=== PATIENT | male | born 1940 | race Caucasian/White ===

== ENCOUNTER → 2019-12-11 | Outpatient (CLI) | payer MEDICARE ==
--- NOTE | 2019-12-17 11:18 | MR ---
EXAMINATION TYPE: MR abdomen wo/w con DATE OF EXAM: 12/11/2019 COMPARISON: Outside CT abdomen and pelvis August 09, 2019 HISTORY: Pancreatic cancer CONTRAST: Standard multiplanar, multisequence MRI departmental protocol utilizing 7.5 mL intravenous Gadavist g adolinium contrast. Imaging is performed of the abdomen focusing on the pancreas. FINDINGS: MRI imaging suboptimal as patient unable to hold breath. Pancreas: On current study there is interval change as pancreas is smaller in size with ductal dilata tion is seen in the proximal to mid body and abrupt occlusion in the pancreatic head. There is persis tent mildly dilated gallbladder with distended margins having dependent small gallstones with mild to moderate abnormal gallbladder wall thickening greatest anterior inferior aspect. There is worsening extrahepatic and left-sided intrahepatic biliary dilatation. There is eccentric prominence measuring up to 2.7 cm of the common bile duct coronal image 16 with abrupt tapering seen best coronal image 17 . There are new thin-walled cysts central posterior to the pancreatic head axial image 17 series 901. There is still poor visualization of distinct mass at level of pancreatic head but heterogeneous are a of masslike enhancement measuring roughly 2.3 x 1.2 cm transversely postcontrast axial image 150 by roughly 2.5 cm craniocaudal dimension coronal postcontrast image 36. There is no distinct fat plane from the adjacent second portion of duodenal sweep. No vascular encasement is present. No definitive new greater than 1 cm adenopathy. Some prominent but subcentimeter and borderline enlarged lymph node s redemonstrated. For reference 16 x 9.5 mm anterior peripancreatic lymph node postcontrast axial baltazar ge 281 noted. Other: Lung bases remain clear. Small size hiatal hernia are redemonstrated. In the posterior segment right hepatic lobe there is 2.2 x 2.0 cm mass of T1 hypointensity and T2 hyp erintensity, dynamic postcontrast images show peripheral nodular enhancement with progressive centrip etal filling both reflect small hemangioma. 2 smaller lesions also identified, both anteriorly, one l eft hepatic lobe image 29 series 901 measures 1.1 cm. Second seen better on postcontrast images anter ior segment right hepatic lobe subcentimeter in size. Both show progressive peripheral rim type enhan cement favoring smaller hemangiomas. There is a fourth lesion posterior right hepatic dome 1.3 cm in size with progressive nodular enhancement. All lesions favor benign hemangiomas. In retrospect they w ere present on outside CT. There is a patent nondilated main portal vein. There are patent hepatic ve ins draining into IVC. Some heterogeneity and initial images corresponds to transient vascular phenom enon. There is some persistent enhancement along the draining central intrahepatic biliary duct nonsp ecific favoring inflammatory change. There are simple appearing thin-walled cysts of varying size and shape scattered throughout both kidn eys including largest lesion lower pole level left kidney extending laterally and inferiorly. No hydr onephrosis present in either kidney. Enhancing lesion superior L3 endplate corresponds to sclerotic focus on CT, nonspecific finding. Diffuse signal dropout in bilateral thickened adrenal glands consistent with benign lipid rich hyperp lasia. Atherosclerotic change of the aorta with focal linear signal or chronic dissection on postcontrast im age 167 for reference corresponding to CT axial image 56. No bowel obstruction. No abdominal ascites. IMPRESSION: Still poor visualization of pancreatic mass or neoplasm but new pancreatic ductal dilatat ion is present suggesting interval progression. Estimates of size of lesion given above. Worsening mo derate to severe biliary dilatation. Reactive cholecystitis is present. New adjacent thin-walled cyst ic change present. Persistent suspicious peripancreatic lymph nodes. Note is made of solid masses sca ttered throughout the liver but they favor benign hemangiomas on MRI dynamic workup. Nonspecific lesi on superior L3 endplate noted, osseous metastatic disease not excluded. MRCP imaging not performed.
== END | disposition home or self-care (01) ==
LOC: RADMRIMAIN 14:23
PROVIDERS: ATTEND Internal Medicine Hematology & Oncology
DX: D18.03 Hemangioma of intra-abdominal structures (principal); K81.9 Cholecystitis, unspecified; C25.0 Malignant neoplasm of head of pancreas
CPT/HCPCS: 74183; A9585

== ENCOUNTER 2020-01-22 14:57 | Emergency (ER) | payer MEDICARE ==
[2020-01-22] MEDS ORDERED: SODIUM CHLORIDE 0.9% 1,000 ML IV STA (15:24)
--- NOTE | 2020-01-22 15:36 | ED ---
General Adult HPI - General Chief complaint: Fall Stated complaint: Fall/weakness Time Seen by Provider: 01/22/20 15:09 Source: patient, RN notes reviewed, old records reviewed Mode of arrival: EMS Limitations: no limitations - History of Present Illness Initial comments: 79 yo male presenting for evaluation of increased weakness and multiple falls. Patient has pancreatic cancer diagnosed in July of this year. He is on chemotherapy and received chemotherapy most recently approximately 2 weeks ago. He had an episode of vomiting after his chemotherapy but over the past 5 days his had very small amount of intake including both fluids in very little food. Poor appetite. No fever. No vomiting. He had fallen twice in the past 2 days with superficial injury to the right forearm. No significant pain complaints. No loss of consciousness. No anticoagulation. - Related Data Home Medications Medication Instructions Recorded Confirmed Ondansetron HCl [Zofran] 4 mg PO Q4H PRN 01/22/20 01/22/20 QUEtiapine [SEROquel] 12.5 mg PO HS PRN 01/22/20 01/22/20 Simvastatin 40 mg PO HS 01/22/20 01/22/20 dronabinoL [Dronabinol] 5 mg PO BID 01/22/20 01/22/20 traMADol HCL [Ultram] 50 mg PO DAILY PRN 01/22/20 01/22/20 Allergies Allergy/AdvReac Type Severity Reaction Status Date / Time No Known Allergies Allergy Verified 01/22/20 16:37 Review of Systems ROS Statement: Those systems with pertinent positive or pertinent negative responses have been documented in the HPI. ROS Other: All systems not noted in ROS Statement are negative. Past Medical History Past Medical History: Cancer Additional Past Medical History / Comment(s): pancreatic cancer diagnosed 11/09 History of Any Multi-Drug Resistant Organisms: None Reported Past Surgical History: No Surgical Hx Reported Past Psychological History: No Psychological Hx Reported Smoking Status: Current every day smoker Past Alcohol Use History: None Reported Past Drug Use History: None Reported General Exam Limitations: no limitations General appearance: alert, in no apparent distress Head exam: Present: atraumatic, normocephalic Eye exam: Present: normal appearance, PERRL ENT exam: Present: mucous membranes dry Neck exam: Present: normal inspection. Absent: tenderness, meningismus Respiratory exam: Present: normal lung sounds bilaterally. Absent: respiratory distress, wheezes Cardiovascular Exam: Present: regular rate, tachycardia GI/Abdominal exam: Present: soft. Absent: distended, tenderness, guarding, rebound Extremities exam: Present: other (Superficial abrasion and skin tear to the right forearm) Neurological exam: Present: alert, oriented X3, CN II-XII intact. Absent: motor sensory deficit Psychiatric exam: Present: normal affect, normal mood Skin exam: Present: warm, dry Course Vital Signs 01/22/20 01/22/20 15:06 17:16 Temperature 97.9 F Pulse Rate 104 H 95 Respiratory 16 16 Rate Blood Pressure 139/80 120/65 O2 Sat by Pulse 98 96 Oximetry - Reevaluation(s) Reevaluation #1: 01/22/20 15:35 Patient states tetanus is up-to-date. EKG Findings - EKG Comments: EKG Findings:: EKG: Normal sinus rhythm, left anterior fascicular block, no ST segment elevation, rate of 97, ND interval 138, QRS duration 120, QTC 5:15 Medical Decision Making - Medical Decision Making 79-year-old male presented with poor appetite, increased generalized weakness and multiple falls. Patient currently on chemotherapy with history of pancreatic cancer.. Dehydrated but stable vitals. He has a normal white blood cell count, improved hemoglobin from recent baseline. He has normal platelets. His hyponatremic with a sodium of 129, is hypokalemic potassium 3.1. We did discuss admission versus home with increased oral hydration and decreased intake. Patient and prefer to be discharged home. He is given 1 L normal saline, and potassium replacement. He will attempt to increase his oral intake at home. Follow with his primary care physician and oncologist. - Lab Data Result diagrams: 01/22/20 16:23 01/22/20 16:23 Lab Results 01/22/20 01/22/20 01/22/20 Range/Units 16:23 16:23 16:23 WBC 4.6 (3.8-10.6) k/uL RBC 3.62 L (4.30-5.90) m/uL Hgb 11.2 L (13.0-17.5) gm/dL Hct 34.5 L (39.0-53.0) % MCV 95.3 (80.0-100.0) fL MCH 30.9 (25.0-35.0) pg MCHC 32.5 (31.0-37.0) g/dL RDW 16.9 H (11.5-15.5) % Plt Count 321 D (150-450) k/uL MPV 6.9 Anisocytosis Slight PT 12.1 H (9.0-12.0) sec INR 1.2 H (<1.2) APTT 27.7 (22.0-30.0) sec Sodium 129 L (137-145) mmol/L Potassium 3.1 L (3.5-5.1) mmol/L Chloride 96 L (98-107) mmol/L Carbon Dioxide 20 L (22-30) mmol/L Anion Gap 13 mmol/L BUN 29 H (9-20) mg/dL Creatinine 0.95 (0.66-1.25) mg/dL Est GFR (CKD-EPI)AfAm 89 (>60 ml/min/1.73 sqM) Est GFR (CKD-EPI)NonAf 77 (>60 ml/min/1.73 sqM) Glucose 98 (74-99) mg/dL Plasma Lactic Acid Avtar (0.7-2.0) mmol/L Calcium 8.4 (8.4-10.2) mg/dL Magnesium 1.9 (1.6-2.3) mg/dL Total Bilirubin 0.5 (0.2-1.3) mg/dL AST 15 L (17-59) U/L ALT 11 (4-49) U/L Alkaline Phosphatase 145 H (38-126) U/L Total Protein 4.7 L (6.3-8.2) g/dL Albumin 2.4 L (3.5-5.0) g/dL 01/22/20 Range/Units 16:23 WBC (3.8-10.6) k/uL RBC (4.30-5.90) m/uL Hgb (13.0-17.5) gm/dL Hct (39.0-53.0) % MCV (80.0-100.0) fL MCH (25.0-35.0) pg MCHC (31.0-37.0) g/dL RDW (11.5-15.5) % Plt Count (150-450) k/uL MPV Anisocytosis PT (9.0-12.0) sec INR (<1.2) APTT (22.0-30.0) sec Sodium (137-145) mmol/L Potassium (3.5-5.1) mmol/L Chloride (98-107) mmol/L Carbon Dioxide (22-30) mmol/L Anion Gap mmol/L BUN (9-20) mg/dL Creatinine (0.66-1.25) mg/dL Est GFR (CKD-EPI)AfAm (>60 ml/min/1.73 sqM) Est GFR (CKD-EPI)NonAf (>60 ml/min/1.73 sqM) Glucose (74-99) mg/dL Plasma Lactic Acid Avtar 1.1 (0.7-2.0) mmol/L Calcium (8.4-10.2) mg/dL Magnesium (1.6-2.3) mg/dL Total Bilirubin (0.2-1.3) mg/dL AST (17-59) U/L ALT (4-49) U/L Alkaline Phosphatase (38-126) U/L Total Protein (6.3-8.2) g/dL Albumin (3.5-5.0) g/dL Disposition Clinical Impression: Fall, Dehydration Disposition: HOME SELF-CARE Condition: Fair Instructions (If sedation given, give patient instructions): Dehydration (ED), Hyponatremia (ED) Is patient prescribed a controlled substance at d/c from ED?: No Referrals: Finesse Chavez MD [Primary Care Provider] - 1-2 days Jose Santiago MD [STAFF PHYSICIAN] - 1-2 days Time of Disposition: 17:22
--- NOTE | 2020-01-22 16:34 | XR ---
EXAMINATION TYPE: XR chest 2V DATE OF EXAM: 01/22/2020 COMPARISON: None HISTORY: 79-year-old male with weakness, fall TECHNIQUE: AP and lateral views FINDINGS: Lordotic positioning. Elongation/ectasia of the thoracic aorta with atherosclerotic arch calcificatio ns. Heart normal size. Prominent vasculature within normal limits. No consolidation or pleural effusi on seen. Right anterior chest wall injection port with catheter tip at the mid SVC level. DISH within the mid thoracic spine. IMPRESSION: Lordotic positioning. Tortuous/ectatic thoracic aorta. No acute process seen.
[2020-01-22 16:36] LABS: Anisocytosis Slight; HCT 34.5 % (39.0-53.0); HGB 11.2 gm/dL (13.0-17.5); MCH 30.9 pg (25.0-35.0); MCHC 32.5 g/dL (31.0-37.0); MCV 95.3 fL (80.0-100.0); Mean Platelet Volume 6.9; RBC 3.62 m/uL (4.30-5.90); RDW 16.9 % (11.5-15.5); WBC 4.6 k/uL (3.8-10.6)
[2020-01-22 16:40] LABS: Platelet Count 321 k/uL (150-450)
[2020-01-22 16:42] LABS: INR 1.2 (<1.2); Partial Thromboplastin Time 27.7 sec (22.0-30.0); Prothrombin Time 12.1 sec (9.0-12.0)
[2020-01-22 16:44] LABS: Albumin 2.4 g/dL (3.5-5.0); Calcium 8.4 mg/dL (8.4-10.2); Magnesium 1.9 mg/dL (1.6-2.3); Potassium 3.1 mmol/L (3.5-5.1); Total Bilirubin 0.5 mg/dL (0.2-1.3); Total Protein 4.7 g/dL (6.3-8.2)
[2020-01-22] MEDS ORDERED: POTASSIUM CHLORIDE ER 20 MEQ TAB.ER PO STA (17:10)
[2020-01-22 17:33] LABS: Band Neutrophils % 23 %; Eosinophils # (M) 0.23 k/uL (0-0.7); Lymphocytes # (M) 0.64 k/uL (1.0-4.8); Monocytes # (M) 0.87 k/uL (0-1.0); Neutrophils % (M) 41 %; Nucleated Red Blood Cells 0 /100 WBC (0-0); Total Cells Counted 200
[2020-01-22 17:52] VITALS: BP 138/74; PULSE 78; RESP 15; TEMP 98
== END 2020-01-22 17:50 | disposition home or self-care (01) ==
LOC: EC 14:57
DX: C25.9 Malignant neoplasm of pancreas, unspecified (principal); S51.811A Laceration without foreign body of right forearm, initial encounter; R53.1 Weakness; E86.0 Dehydration; E87.1 Hypo-osmolality and hyponatremia; E87.6 Hypokalemia; F17.200 Nicotine dependence, unspecified, uncomplicated; Z79.899 Other long term (current) drug therapy; W19.XXXA Unspecified fall, initial encounter; Y92.009 Unspecified place in unspecified non-institutional (private) residence as the place of occurrence of the external cause
CPT/HCPCS: 71046; 80053; 83605; 83735; 85025; 85610; 85730; 93005; 96360; 99285

== ENCOUNTER 2020-01-27 14:57 | Inpatient (IN) | payer MEDICARE ==
[2020-01-27] MEDS ORDERED: SODIUM CHLORIDE 0.9% 1,000 ML IV STA (15:15)
[2020-01-27] MEDS ORDERED: ONDANSETRON 4 MG/2 ML VIAL IVP STA (15:15)
--- NOTE | 2020-01-27 15:18 | ED ---
General Adult HPI - General Chief complaint: Weakness Stated complaint: weakness Time Seen by Provider: 01/27/20 15:06 Source: patient, EMS, RN notes reviewed Mode of arrival: EMS Limitations: no limitations - History of Present Illness Initial comments: A pleasant 79-year-old male presenting to the emergency department generalized weakness. Patient has been getting cancer and is on chemotherapy with Dr. Pal. Patient was advised come to the hospital. Patient has increased general weakness. Patient does have some nausea, decreased oral intake, occasional loose stools. No fever. Patient is unable to ambulate without walker. No confusion. No isolated area of weakness. - Related Data Home Medications Medication Instructions Recorded Confirmed Ondansetron HCl [Zofran] 4 mg PO Q4H PRN 01/22/20 01/27/20 QUEtiapine [SEROquel] 12.5 mg PO HS PRN 01/22/20 01/27/20 Simvastatin 40 mg PO HS 01/22/20 01/27/20 dronabinoL [Dronabinol] 5 mg PO BID 01/22/20 01/27/20 traMADol HCL [Ultram] 50 mg PO DAILY PRN 01/22/20 01/27/20 Allergies Allergy/AdvReac Type Severity Reaction Status Date / Time No Known Allergies Allergy Verified 01/27/20 16:13 Review of Systems ROS Statement: Those systems with pertinent positive or pertinent negative responses have been documented in the HPI. ROS Other: All systems not noted in ROS Statement are negative. Constitutional: Denies: fever Eyes: Denies: eye pain ENT: Denies: ear pain Respiratory: Denies: cough, dyspnea Cardiovascular: Denies: chest pain Endocrine: Reports: fatigue Gastrointestinal: Reports: nausea. Denies: abdominal pain Genitourinary: Denies: urgency Musculoskeletal: Denies: back pain Skin: Denies: rash Neurological: Reports: as per HPI. Denies: headache, confusion Past Medical History Past Medical History: Cancer Additional Past Medical History / Comment(s): pancreatic cancer diagnosed 11/09 History of Any Multi-Drug Resistant Organisms: None Reported Past Surgical History: No Surgical Hx Reported Past Psychological History: No Psychological Hx Reported Smoking Status: Current every day smoker Past Alcohol Use History: None Reported Past Drug Use History: None Reported General Exam Limitations: no limitations General appearance: alert Head exam: Present: atraumatic Eye exam: Present: normal appearance, PERRL, EOMI ENT exam: Present: mucous membranes dry Neck exam: Present: normal inspection Respiratory exam: Present: normal lung sounds bilaterally Cardiovascular Exam: Present: tachycardia GI/Abdominal exam: Present: soft. Absent: tenderness Extremities exam: Present: normal inspection. Absent: pedal edema, calf tenderness Neurological exam: Present: alert. Absent: motor sensory deficit Psychiatric exam: Present: flat affect Skin exam: Present: normal color Course Vital Signs 01/27/20 15:02 Temperature 97 F L Pulse Rate 108 H Respiratory 18 Rate Blood Pressure 127/92 O2 Sat by Pulse 98 Oximetry EKG Findings - EKG Comments: EKG Findings:: Sinus tachycardia 106. TN 132. QRS 108. QT 376. QTc 499. Left axis. Normal QRS. No acute ST change. Medical Decision Making - Medical Decision Making Patient reevaluated and updated. Case discussed with Dr. Barton, covering for Dr. Chavez, who will admit. Patient was sent over by Dr. Pal for admission and he will also be placed on consult. - Lab Data Result diagrams: 01/27/20 15:34 01/27/20 15:34 Lab Results 01/27/20 01/27/20 01/27/20 Range/Units 15:34 15:34 15:34 WBC 6.8 (3.8-10.6) k/uL RBC 4.14 L (4.30-5.90) m/uL Hgb 12.6 L (13.0-17.5) gm/dL Hct 39.4 (39.0-53.0) % MCV 95.3 (80.0-100.0) fL MCH 30.4 (25.0-35.0) pg MCHC 31.9 (31.0-37.0) g/dL RDW 17.1 H (11.5-15.5) % Plt Count 318 (150-450) k/uL MPV 7.2 Anisocytosis Slight PT 12.8 H (9.0-12.0) sec INR 1.3 H (<1.2) APTT 25.9 (22.0-30.0) sec Sodium 131 L (137-145) mmol/L Potassium 3.2 L (3.5-5.1) mmol/L Chloride 98 (98-107) mmol/L Carbon Dioxide 21 L (22-30) mmol/L Anion Gap 12 mmol/L BUN 66 H (9-20) mg/dL Creatinine 1.81 H (0.66-1.25) mg/dL Est GFR (CKD-EPI)AfAm 41 (>60 ml/min/1.73 sqM) Est GFR (CKD-EPI)NonAf 35 (>60 ml/min/1.73 sqM) Glucose 152 H (74-99) mg/dL Plasma Lactic Acid Avtar (0.7-2.0) mmol/L Calcium 8.3 L (8.4-10.2) mg/dL Magnesium 1.9 (1.6-2.3) mg/dL Total Bilirubin 0.4 (0.2-1.3) mg/dL AST 16 L (17-59) U/L ALT 12 (4-49) U/L Alkaline Phosphatase 132 H (38-126) U/L Total Protein 5.0 L (6.3-8.2) g/dL Albumin 2.4 L (3.5-5.0) g/dL 01/27/20 Range/Units 15:34 WBC (3.8-10.6) k/uL RBC (4.30-5.90) m/uL Hgb (13.0-17.5) gm/dL Hct (39.0-53.0) % MCV (80.0-100.0) fL MCH (25.0-35.0) pg MCHC (31.0-37.0) g/dL RDW (11.5-15.5) % Plt Count (150-450) k/uL MPV Anisocytosis PT (9.0-12.0) sec INR (<1.2) APTT (22.0-30.0) sec Sodium (137-145) mmol/L Potassium (3.5-5.1) mmol/L Chloride (98-107) mmol/L Carbon Dioxide (22-30) mmol/L Anion Gap mmol/L BUN (9-20) mg/dL Creatinine (0.66-1.25) mg/dL Est GFR (CKD-EPI)AfAm (>60 ml/min/1.73 sqM) Est GFR (CKD-EPI)NonAf (>60 ml/min/1.73 sqM) Glucose (74-99) mg/dL Plasma Lactic Acid Avtar 1.4 (0.7-2.0) mmol/L Calcium (8.4-10.2) mg/dL Magnesium (1.6-2.3) mg/dL Total Bilirubin (0.2-1.3) mg/dL AST (17-59) U/L ALT (4-49) U/L Alkaline Phosphatase (38-126) U/L Total Protein (6.3-8.2) g/dL Albumin (3.5-5.0) g/dL - Radiology Data Radiology results: image reviewed (Chest x-ray shows no acute process) Disposition Clinical Impression: Dehydration, Weakness Disposition: ADMITTED IP TO THIS HOSP Is patient prescribed a controlled substance at d/c from ED?: No Referrals: Finesse Chavez MD [Primary Care Provider] - 1-2 days Decision Time: 16:19
--- NOTE | 2020-01-27 15:59 | XR ---
EXAMINATION TYPE: XR chest 2V DATE OF EXAM: 01/27/2020 COMPARISON: X-ray 5 days ago. HISTORY: History of pancreatic cancer with weakness. TECHNIQUE: Frontal and lateral views of the chest are obtained. FINDINGS: Stable right subclavian Mediport catheter. Improved inspiration on current study. There is background chronic emphysematous change without suspicious new focal air space opacity, pleural effu morris, or pneumothorax seen. The cardiac silhouette size remains within normal limits with atheroscle rotic change in the aortic knob. Multilevel spurring in the spine. Degenerative change bilateral franchesca ohumeral joints. IMPRESSION: Chronic emphysematous change without acute pulmonary process.
[2020-01-27 16:01] LABS: Albumin 2.4 g/dL (3.5-5.0); Calcium 8.3 mg/dL (8.4-10.2); INR 1.3 (<1.2); Magnesium 1.9 mg/dL (1.6-2.3); Partial Thromboplastin Time 25.9 sec (22.0-30.0); Potassium 3.2 mmol/L (3.5-5.1); Prothrombin Time 12.8 sec (9.0-12.0); Total Bilirubin 0.4 mg/dL (0.2-1.3)
[2020-01-27 16:10] LABS: Anisocytosis Slight; HCT 39.4 % (39.0-53.0); HGB 12.6 gm/dL (13.0-17.5); MCH 30.4 pg (25.0-35.0); MCHC 31.9 g/dL (31.0-37.0); MCV 95.3 fL (80.0-100.0); Mean Platelet Volume 7.2; Platelet Count 318 k/uL (150-450); RBC 4.14 m/uL (4.30-5.90); RDW 17.1 % (11.5-15.5); WBC 6.8 k/uL (3.8-10.6)
[2020-01-27] MEDS ORDERED: NALOXONE 0.4 MG/ML 1 ML VIAL IV PRN (16:19)
[2020-01-27] MEDS ORDERED: ONDANSETRON 4 MG/2 ML VIAL IVP PRN (16:19)
[2020-01-27 16:31] LABS: Band Neutrophils % 24 %; Lymphocytes # (M) 0.61 k/uL (1.0-4.8); Metamyelocytes # (M) 0.07 k/uL (0); Metamyelocytes % 1 %; Monocytes # (M) 0.54 k/uL (0-1.0); Neutrophils % (M) 59 %; Nucleated Red Blood Cells 0 /100 WBC (0-0); Total Cells Counted 200; Toxic Granulation Present; Toxic Vacuolation Present
[2020-01-27 16:59] LABS: Appearance,Urine Clear (Clear); Bacteria,Urine Rare /hpf; Bilirubin,Urine 1+ (Negative); Blood,Urine Negative (Negative); Color,Urine Yellow; Glucose,Urine (UA) Negative (Negative); Hyaline Casts,Urine 1 /lpf (0-2); Ketones,Urine Trace (Negative); Leukocyte Esterase,Urine Negative (Negative); Mucus,Urine Rare /hpf; Nitrite,Urine Negative (Negative); PH, Urine 5.5 (5.0-8.0); Protein,Urine 1+ (Negative); RBC,Urine <1 /hpf (0-5); Specific Gravity,Urine 1.021 (1.001-1.035); Urobilinogen,Urine <2.0 mg/dL (<2.0); WBC,Urine 1 /hpf (0-5)
[2020-01-27] MEDS ORDERED: traMADol 50 MG TAB PO PRN (18:26)
[2020-01-27] MEDS ORDERED: ONDANSETRON 4 MG TAB PO PRN (18:26)
[2020-01-27] MEDS ORDERED: QUEtiapine 25 MG TAB PO PRN (18:26)
[2020-01-27] MEDS: ATORVASTATIN 20 MG TAB PO SCH (21:25)
[2020-01-28 07:08] LABS: Anisocytosis Slight; HCT 34.7 % (39.0-53.0); HGB 11.5 gm/dL (13.0-17.5); MCHC 33.1 g/dL (31.0-37.0); MCV 96.8 fL (80.0-100.0); Macrocytosis Slight; Platelet Count 233 k/uL (150-450); RBC 3.58 m/uL (4.30-5.90); RDW 16.7 % (11.5-15.5); WBC 5.2 k/uL (3.8-10.6)
--- NOTE | 2020-01-28 08:13 | P.HPIM ---
History of Present Illness H&P Date: 01/27/20 Chief Complaint: Severe dehydration, severe generalized weakness, advanced p ancreatic cancer 79-year-old male one of Dr. Chavez's patient with past medical history of pancreatic cancer was diagnosed recently who also nontender have history of BPH, hyperlipidemia hypertension chronic smoking who was diagnosed with pancreatic cancer not a candidate for surgery ended up seen oncology and has been on chemotherapy. Patient apparently took his chemotherapy last time Monday last week he was seen by his oncologist Dr. Ohara today complaining of severe generalized weakness with constitutional symptoms patient also developed to have mild nausea with no vomiting significant decrease intake Occasional worsening abdominal pain as well. Was seen and evaluated the [facility] department on to have BUN 66 creatinine of 1.81 significantly abnormal liver function tests urine was positive for as well. Patient is not able to hold his his had or be of continue to have significant symptoms with intractable nausea vomiting become extremely lightheaded and dizzy. [place] patient was diagnosed originally with pancreatic cancer in November when he developed to have painless jaundice CT of the abdomen and pelvis was confirmative patient was not a candidate to go for any surgical resection has been doing well until. Review of Systems CONSTITUTIONAL: Well-developed no acute respiratory distress. No cold or than his age EYES: No icterus sclerae, no conjunctivitis. EARS, NOSE, MOUTH, THROAT, and FACE: No sore throat, lymphadenopathy, carotid bruits or deformity. RESPIRATORY: Agrees breasts on the finding nor rhonchi mild expiratory wheezes. CARDIOVASCULAR: No CP, Palpitation, PND, Orthopnea, or angina. GASTROINTESTINAL: No Abd pain, Nausea or vomiting, no Diarrhea or constipation, No GI Bleed, no distention or masses. GENITOURINARY: Negative for Hematuria or UTI, no kidney stones. INTEGUMENT/BREAST: Negative for any muscular injury with mild osteoarthritis.. HEMATOLOGIC/LYMPHATIC: Negative for bleed or purpura. MUSCULOSKELTAL: Negative for Myalgia or arthralgia. NEURLOGICAL: No LOC, Sz or syncope, blurred vision dizziness or abnormality.. BEHAVIORAL/PSYCH: Negative. ENDOCRINE: Negative. Past Medical History Past Medical History: Cancer Additional Past Medical History / Comment(s): pancreatic cancer diagnosed 11/09 History of Any Multi-Drug Resistant Organisms: None Reported Past Surgical History: No Surgical Hx Reported Past Anesthesia/Blood Transfusion Reactions: No Reported Reaction, Unable to Obtain Past Psychological History: No Psychological Hx Reported Smoking Status: Current every day smoker Past Alcohol Use History: None Reported Past Drug Use History: None Reported Medications and Allergies Home Medications Medication Instructions Recorded Confirmed Type Ondansetron HCl [Zofran] 4 mg PO Q4H PRN 01/22/20 01/27/20 History QUEtiapine [SEROquel] 12.5 mg PO HS PRN 01/22/20 01/27/20 History Simvastatin 40 mg PO HS 01/22/20 01/27/20 History dronabinoL [Dronabinol] 5 mg PO BID 01/22/20 01/27/20 History traMADol HCL [Ultram] 50 mg PO DAILY PRN 01/22/20 01/27/20 History Allergies Allergy/AdvReac Type Severity Reaction Status Date / Time No Known Allergies Allergy Verified 01/27/20 16:13 Physical Exam Vitals: Vital Signs Temp Pulse Resp BP BP Pulse Ox 01/27/20 17:26 97.8 F 17 145/87 100 01/27/20 15:02 97 F L 108 H 18 127/92 98 Intake and Output 01/27/20 01/27/20 01/27/20 06:59 14:59 22:59 Other: Weight 65.317 kg General Appearance: Alert, cooperative, no distress, appears much older than his age Neck HEENT: Supple, no lymphadenopathy, no thyroid enlargement, no carotid bruits. Lungs: Decreased breath sound bilaterally fine rhonchi or wheezes. Chest Wall: Decrease expansion with deep inspiration no tenderness and no deformity was found on exam, no costochondral pain or discomfort. Heart: Regular rate and rhythm, S1, S2 normal, no murmur, rub or gallop. Back: Symmetric, no curvature, ROM normal, no CVA tenderness. Abdomen: Soft slight discomfort in the midepigastric and right upper quadrant area rebound or rigidity. Extremities: Extremities normal, atraumatic, no cyanosis or edema. Pulses: 2+ and symmetric. Skin: Skin color, texture, tugor normal, no rashes or lesions. Neurologic: Alert oriented x3 with slight confusion and currently nerve are normal positive generalized weakness with no focal deficit. Results CBC & Chem 7: 01/28/20 06:14 01/28/20 06:14 Labs: Abnormal Lab Results - Last 24 Hours (Table) 01/27/20 01/27/20 01/27/20 Range/Units 15:34 15:34 15:34 RBC 4.14 L (4.30-5.90) m/uL Hgb 12.6 L (13.0-17.5) gm/dL RDW 17.1 H (11.5-15.5) % Lymphocytes # (Manual) 0.61 L (1.0-4.8) k/uL Metamyelocytes # (Man) 0.07 H (0) k/uL PT 12.8 H (9.0-12.0) sec INR 1.3 H (<1.2) Sodium 131 L (137-145) mmol/L Potassium 3.2 L (3.5-5.1) mmol/L Carbon Dioxide 21 L (22-30) mmol/L BUN 66 H (9-20) mg/dL Creatinine 1.81 H (0.66-1.25) mg/dL Glucose 152 H (74-99) mg/dL Calcium 8.3 L (8.4-10.2) mg/dL AST 16 L (17-59) U/L Alkaline Phosphatase 132 H (38-126) U/L Total Protein 5.0 L (6.3-8.2) g/dL Albumin 2.4 L (3.5-5.0) g/dL Urine Protein (Negative) Urine Ketones (Negative) Urine Bilirubin (Negative) Urine Bacteria (None) /hpf Urine Mucus (None) /hpf 01/27/20 Range/Units 16:19 RBC (4.30-5.90) m/uL Hgb (13.0-17.5) gm/dL RDW (11.5-15.5) % Lymphocytes # (Manual) (1.0-4.8) k/uL Metamyelocytes # (Man) (0) k/uL PT (9.0-12.0) sec INR (<1.2) Sodium (137-145) mmol/L Potassium (3.5-5.1) mmol/L Carbon Dioxide (22-30) mmol/L BUN (9-20) mg/dL Creatinine (0.66-1.25) mg/dL Glucose (74-99) mg/dL Calcium (8.4-10.2) mg/dL AST (17-59) U/L Alkaline Phosphatase (38-126) U/L Total Protein (6.3-8.2) g/dL Albumin (3.5-5.0) g/dL Urine Protein 1+ H (Negative) Urine Ketones Trace H (Negative) Urine Bilirubin 1+ H (Negative) Urine Bacteria Rare H (None) /hpf Urine Mucus Rare H (None) /hpf Thrombosis Risk Factor Assmnt - Choose All That Apply Each Factor Represents 1 point: Abnormal pulmonary function (COPD) Each Risk Factor Represents 2 Points: Malignancy Each Risk Factor Represents 3 Points: Age 75 years or older Thrombosis Risk Factor Assessment Total Risk Factor Score: 6 Thrombosis Risk Factor Assessment Level: High Risk Assessment and Plan Assessment: 1 intractable nausea vomiting and severe dehydration: Combination of side effect of chemotherapy along with worsening pancreatic cancer. BUN/creatinine ratio is over 20 also patient had slight low potassium lactic acid was normal with significantly abnormal liver function test. 2 pancreatic cancer: Advance with worsening symptoms has been on chemotherapy with reaction to chemotherapy so far. Electrolyte imbalance: Continue to correct potassium watch liver function tests electrolyte imbalance daily while patient hospital. 4 hyperlipidemia: Has been on simvastatin which was switched to atorvastatin at this point. 5 depression: Has been on Seroquel and Marinol doing well. 6 chronic smoking: Patient is still smoking 3 cigarettes a day who will have nicotine patch continue counseling to quit smoking completely. 7 hyperglycemia: Accu-Chek sliding scales coverage and be done. 8 DVT prophylaxis: Patient will be on heparin or Lovenox subcutaneous. 9 GI prophylaxis: Patient will be on pantoprazole. CODE STATUS: Full code. Admit patient to the inpatient service for 1-2 nights stay.`
[2020-01-28 08:49] LABS: Band Neutrophils % 8 %; Eosinophils # (M) 0.05 k/uL (0-0.7); Lymphocytes # (M) 0.62 k/uL (1.0-4.8); Metamyelocytes # (M) 0.05 k/uL (0); Metamyelocytes % 1 %; Monocytes # (M) 0.62 k/uL (0-1.0); Neutrophils % (M) 68 %; Nucleated Red Blood Cells 0 /100 WBC (0-0); Total Cells Counted 200
[2020-01-28] MEDS ORDERED: PANTOPRAZOLE 40 MG/10 ML VIAL IV SCH (09:00)
[2020-01-28 09:46] LABS: African American GFR (CKD) 55.8 (60.0-200.0); Anion Gap 12.4 mmol/L (4.00-12.00); Calcium 7.7 mg/dL (8.7-10.3); Carbon Dioxide 21.6 mmol/L (21.6-31.8); Non-African American GFR(CKD) 48.1 (60.0-200.0); Potassium 3.1 mmol/L (3.5-5.5)
[2020-01-28] MEDS: POTASSIUM CHLORIDE ER 20 MEQ TAB.ER PO SCH ×2 (13:22→15:53)
--- NOTE | 2020-01-28 13:24 | P.PN ---
Subjective Progress Note Date: 01/28/20 HISTORY OF PRESENT ILLNESS 79-year-old male one of Dr. Chavez's patient with past medical history of pancreatic cancer was diagnosed recently who also nontender have history of BPH, hyperlipidemia hypertension chronic smoking who was diagnosed with pancreatic cancer not a candidate for surgery ended up seen oncology and has been on chemotherapy. Patient apparently took his chemotherapy last time Monday last week he was seen by his oncologist Dr. Ohara today complaining of severe generalized weakness with constitutional symptoms patient also developed to have mild nausea with no vomiting significant decrease intake Occasional worsening abdominal pain as well. Was seen and evaluated the [facility] department on to have BUN 66 creatinine of 1.81 significantly abnormal liver function tests urine was positive for as well. Patient is not able to hold his his had or be of continue to have significant symptoms with intractable nausea vomiting become extremely lightheaded and dizzy. [place] patient was diagnosed originally with pancreatic cancer in November when he developed to have painless jaundice CT of the abdomen and pelvis was confirmative patient was not a candidate to go for any surgical resection has been doing well until. 01/27: Patient is seen in follow-up today. Patient has been afebrile, heart rate 95, blood pressure 131/70, pulse ox 97% on room air. Repeat blood work reveals W BC 5.2, hemoglobin 11.5, platelet count 233. Potassium is 3.1 and will be replaced. Creatinine 1.4 and BUN 63. Patient has required Fuentes catheter placement due to urinary retention of greater than 300 ML's. Patient has refused bedtime snack and breakfast with very little appetite. Diet is currently clear liquids only. IV fluids will be decreased to 75 mL per hour. Consult in place with oncology. REVIEW OF SYSTEMS CONSTITUTIONAL: Well-developed no acute respiratory distress. No no fever. EYES: No icterus sclerae, no conjunctivitis. EARS, NOSE, MOUTH, THROAT, and FACE: No sore throat, lymphadenopathy, carotid bruits or deformity. RESPIRATORY: Agrees breasts on the finding nor rhonchi mild expiratory wheezes. CARDIOVASCULAR: No CP, Palpitation, PND, Orthopnea, or angina. GASTROINTESTINAL: No Abd pain, Nausea or vomiting, no Diarrhea or constipation, No GI Bleed, no distention or masses. GENITOURINARY: Negative for Hematuria or UTI, no kidney stones. INTEGUMENT/BREAST: Negative for any muscular injury with mild osteoarthritis.. HEMATOLOGIC/LYMPHATIC: Negative for bleed or purpura. MUSCULOSKELTAL: Negative for Myalgia or arthralgia. NEURLOGICAL: No LOC, Sz or syncope, blurred vision dizziness or abnormality.. BEHAVIORAL/PSYCH: Negative. ENDOCRINE: Negative. PHYSICAL EXAMINATION Gen: This is a thin cachectic appearing 79-year-old male. Patient is sitting on the edge of the bed and appears to be comfortable. No acute respiratory distress noted. HEENT: Head is atraumatic, normocephalic. Pupils equal, round. Sclerae is anicteric. NECK: Supple. No JVD. No lymphadenopathy. No thyromegaly. LUNGS: Clear to auscultation. No wheezes or rhonchi. No intercostal retractions. HEART: Regular rate and rhythm. No murmur. ABDOMEN: Soft. Bowel sounds are present. No masses. No tenderness. EXTREMITIES: No pedal edema. No calf tenderness. NEUROLOGICAL: Patient is awake, alert and oriented x3. Cranial nerves 2 through 12 are grossly intact. ASSESSMENT AND PLAN 1 intractable nausea vomiting and severe dehydration: Combination of side effect of chemotherapy along with worsening pancreatic cancer. BUN/creatinine ratio is over 20 also patient had slight low potassium lactic acid was normal with significantly abnormal liver function test. 2 pancreatic cancer: Advance with worsening symptoms has been on chemotherapy with reaction to chemotherapy so far. Consult with oncology. 3. Electrolyte imbalance, hypokalemia: Continue to correct potassium watch liver function tests electrolyte imbalance daily while patient hospital. Status post replacement. 4 hyperlipidemia: Has been on simvastatin which was switched to atorvastatin at this point. 5 recurrent depression: Has been on Seroquel and Marinol doing well. 6 chronic smoking: Patient is still smoking 3 cigarettes a day who will have nicotine patch continue counseling to quit smoking completely. 7 hyperglycemia: Accu-Chek sliding scales coverage and be done. 8 DVT prophylaxis: Patient will be on heparin or Lovenox subcutaneous. 9 GI prophylaxis: Patient will be on pantoprazole. 10. Severe protein calorie malnutrition with BMI of 21, weight loss, albumin 2.4. Continue Marinol, Ensure clear added CODE STATUS: Full code. DISCHARGE PLAN To be determined. Impression and plan of care have been directed as dictated by the signing physician. Denise Aguirre nurse practitioner acting as scribe for signing physician. Objective - Vital Signs Vital signs: Vital Signs Temp 97.8 F 01/28/20 01:50 Pulse 95 01/28/20 01:50 Resp 16 01/28/20 01:50 BP 123/62 01/28/20 01:50 Pulse Ox 99 01/28/20 01:50 Intake & Output 01/27/20 01/28/20 01/28/20 18:59 06:59 18:59 Intake Total 1850 Balance 1850 Weight 65.317 kg Intake: Intake, IV Titration 1530 Amount Sodium Chloride 0.9% 1, 1530 000 ml @ 130 mls/hr IV . Q7H42M STA Rx#:[id number] Oral 320 Other: Voiding Method Diaper # Voids 3 - Labs CBC & Chem 7: 01/28/20 06:14 01/28/20 06:14 Labs: Abnormal Lab Results - Last 24 Hours (Table) 01/27/20 01/27/20 01/27/20 Range/Units 15:34 15:34 15:34 RBC 4.14 L (4.30-5.90) m/uL Hgb 12.6 L (13.0-17.5) gm/dL Hct (39.0-53.0) % RDW 17.1 H (11.5-15.5) % Lymphocytes # (Manual) 0.61 L (1.0-4.8) k/uL Metamyelocytes # (Man) 0.07 H (0) k/uL PT 12.8 H (9.0-12.0) sec INR 1.3 H (<1.2) Sodium 131 L (137-145) mmol/L Potassium 3.2 L (3.5-5.1) mmol/L Carbon Dioxide 21 L (22-30) mmol/L BUN 66 H (9-20) mg/dL Creatinine 1.81 H (0.66-1.25) mg/dL Glucose 152 H (74-99) mg/dL Calcium 8.3 L (8.4-10.2) mg/dL AST 16 L (17-59) U/L Alkaline Phosphatase 132 H (38-126) U/L Total Protein 5.0 L (6.3-8.2) g/dL Albumin 2.4 L (3.5-5.0) g/dL Urine Protein (Negative) Urine Ketones (Negative) Urine Bilirubin (Negative) Urine Bacteria (None) /hpf Urine Mucus (None) /hpf 01/27/20 01/28/20 Range/Units 16:19 06:14 RBC 3.58 L (4.30-5.90) m/uL Hgb 11.5 L (13.0-17.5) gm/dL Hct 34.7 L (39.0-53.0) % RDW 16.7 H (11.5-15.5) % Lymphocytes # (Manual) (1.0-4.8) k/uL Metamyelocytes # (Man) (0) k/uL PT (9.0-12.0) sec INR (<1.2) Sodium (137-145) mmol/L Potassium (3.5-5.1) mmol/L Carbon Dioxide (22-30) mmol/L BUN (9-20) mg/dL Creatinine (0.66-1.25) mg/dL Glucose (74-99) mg/dL Calcium (8.4-10.2) mg/dL AST (17-59) U/L Alkaline Phosphatase (38-126) U/L Total Protein (6.3-8.2) g/dL Albumin (3.5-5.0) g/dL Urine Protein 1+ H (Negative) Urine Ketones Trace H (Negative) Urine Bilirubin 1+ H (Negative) Urine Bacteria Rare H (None) /hpf Urine Mucus Rare H (None) /hpf
[2020-01-28 14:58] VITALS: BMI 20.6
--- NOTE | 2020-01-28 17:07 | P.CONS ---
History of Present Illness - Reason for Consult Consult date: 01/28/20 Pancreatic cancer Requesting physician: Dwayne Sauceda - Chief Complaint Declining PS - History of Present Illness This is a very nice patient who presented with painless jaundice and nicolette colored urine in early July/2019,he was admitted to [facility],he initially had a CT scan of abdomen with revealed dilated common bile duct and intra hepatic biliary dilatation. On 08/10/2019,MRCP revealed 1.4 cm mass in head of pancreas,multiple suspicious liver lesions measured up to 2.4cm. On 08/10/2019,[place]19[place]9 [place] 58825, his bilirubin was 18.2,ALK 429,ALT 172,AST 91. 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 He had BCRA testing which came back negative. On 08/27/2019,CA19-9 was 1185 On 09/20/2019,he started gemzar/abraxane. On 10/14/2019,CA19-9 was 1027. On 11/16/2019,CA19-9 was down to 198. On 12/17/2019,repeat abdominal MRI revealed evidence of progression. On 12/17/2019,CA19-9 went up to 369. Gemzar/abraxane were discontinued. On 12/25/2019,he started onivyde/5FU He was last seen on 01/[address] treadwell and at that time his performance status was declining. Dr. Treadwell recommended to hold systemic therapy for now. Repeat CA19-9,re-evaluate in 3 weeks,if he feels better and his CA19-9 is declining,may resume treatment at reduced dose. His tumor marker did decrease, consistent with treatment response. But he now presents with generalized weakness, urinary retention, dehydration, Decreased appetite to no appetite and persistent nausea and vomiting. He has been refusing hospital food as well. Review of Systems All systems: negative Constitutional: Reports as per HPI Past Medical History Past Medical History: Cancer Additional Past Medical History / Comment(s): pancreatic cancer diagnosed 11/09 History of Any Multi-Drug Resistant Organisms: None Reported Past Surgical History: No Surgical Hx Reported Past Anesthesia/Blood Transfusion Reactions: No Reported Reaction, Unable to Obtain Past Psychological History: No Psychological Hx Reported Smoking Status: Current every day smoker Past Alcohol Use History: None Reported Past Drug Use History: None Reported Medications and Allergies Home Medications Medication Instructions Recorded Confirmed Type Ondansetron HCl [Zofran] 4 mg PO Q4H PRN 01/22/20 01/27/20 History QUEtiapine [SEROquel] 12.5 mg PO HS PRN 01/22/20 01/27/20 History Simvastatin 40 mg PO HS 01/22/20 01/27/20 History dronabinoL [Dronabinol] 5 mg PO BID 01/22/20 01/27/20 History traMADol HCL [Ultram] 50 mg PO DAILY PRN 01/22/20 01/27/20 History Allergies Allergy/AdvReac Type Severity Reaction Status Date / Time No Known Allergies Allergy Verified 01/27/20 16:13 Physical Exam Vitals: Vital Signs Temp Pulse Resp BP BP Pulse Ox 01/28/20 14:15 97.7 F 79 14 125/70 99 01/28/20 08:35 96.6 F L 95 16 131/78 97 01/28/20 01:50 97.8 F 95 16 123/62 99 01/27/20 20:00 97.7 F 92 16 121/70 98 01/27/20 17:26 97.8 F 17 145/87 100 Intake and Output 01/28/20 01/28/20 01/28/20 06:59 14:59 22:59 Intake Total 1850 Output Total 800 Balance 1850 -800 Intake: Intake, IV Titration 1530 Amount Sodium Chloride 0.9% 1, 1530 000 ml @ 130 mls/hr IV . Q7H42M STA Rx#:[id number] Oral 320 Output: Urine 800 Other: # Voids 3 # Bowel Movements 0 Weight 65.317 kg - Constitutional General appearance: cooperative, no acute distress, thin - EENT Eyes: EOMI ENT: NA/AT - Respiratory Respiratory: bilateral: diminished - Cardiovascular Rhythm: regular Heart sounds: normal: S1, S2 - Gastrointestinal General gastrointestinal: soft - Integumentary Integumentary: pale - Neurologic Neurologic: CNII-XII intact - Musculoskeletal Musculoskeletal: generalized weakness, strength equal bilaterally - Psychiatric Psychiatric: A&O x's 3 Results CBC & Chem 7: 01/28/20 06:14 01/28/20 06:14 Labs: Abnormal Lab Results - Last 24 Hours (Table) 01/27/20 01/28/20 01/28/20 Range/Units 16:19 06:14 06:14 RBC 3.58 L (4.30-5.90) m/uL Hgb 11.5 L (13.0-17.5) gm/dL Hct 34.7 L (39.0-53.0) % RDW 16.7 H (11.5-15.5) % Lymphocytes # (Manual) 0.62 L (1.0-4.8) k/uL Metamyelocytes # (Man) 0.05 H (0) k/uL Potassium 3.1 L (3.5-5.5) mmol/L Anion Gap 12.40 H (4.00-12.00) mmol/L BUN 63.0 H (9.0-27.0) mg/dL Est GFR (CKD-EPI)AfAm 55.8 L (60.0-200.0) Est GFR (CKD-EPI)NonAf 48.1 L (60.0-200.0) BUN/Creatinine Ratio 45.00 H (12.00-20.00) Ratio Calcium 7.7 L (8.7-10.3) mg/dL Urine Protein 1+ H (Negative) Urine Ketones Trace H (Negative) Urine Bilirubin 1+ H (Negative) Urine Bacteria Rare H (None) /hpf Urine Mucus Rare H (None) /hpf Assessment and Plan (1) Pancreatic cancer Narrative/Plan: - Has been on hold since December for decreased performance Current Visit: Yes Status: Acute Code(s): C25.9 - MALIGNANT NEOPLASM OF PANCREAS, UNSPECIFIED SNOMED Code(s): 790384725 (2) Dehydration Current Visit: Yes Status: Acute Code(s): E86.0 - DEHYDRATION SNOMED Code(s): 36963329 (3) Weakness Current Visit: Yes Status: Acute Code(s): R53.1 - WEAKNESS SNOMED Code(s): 74738725 (4) Fall Current Visit: No Status: Acute Code(s): W19.XXXA - UNSPECIFIED FALL, INITIAL ENCOUNTER SNOMED Code(s): 0587410 (5) Hypokalemia Current Visit: Yes Status: Acute Code(s): E87.6 - HYPOKALEMIA SNOMED Code(s): 00626405 (6) Acute kidney insufficiency Current Visit: Yes Status: Acute Code(s): N28.9 - DISORDER OF KIDNEY AND URETER, UNSPECIFIED SNOMED Code(s): 481487247 Plan: - IV Hydration - Dieticien and strict I and Os please - Daily PT/OT - Increase Antiemetics - Nystatin for component of oral thrush - COntinue appetite stimulator and anri-depressants - Repeat abdominal imaging when Renal function improved - Daily cbc and electrolyte monitoring - ANemia work-up for replacement Physician Attest: I have completed the full history and physical and agree with above dictation, dictated as a scribe
[2020-01-28] MEDS: ATORVASTATIN 20 MG TAB PO SCH (20:56)
[2020-01-29] MEDS: NYSTATIN 100,000 UNIT/ML SUSP 500,000 UNIT/5 ML CUP PO SCH ×5 (01:31→19:58)
[2020-01-29] MEDS: traMADol 50 MG TAB PO PRN ×4 (03:09→19:51)
[2020-01-29 05:58] LABS: Anisocytosis Slight; HCT 37.5 % (39.0-53.0); HGB 11.6 gm/dL (13.0-17.5); Hypochromasia Slight; MCH 30.4 pg (25.0-35.0); MCV 98.3 fL (80.0-100.0); Macrocytosis Slight; Mean Platelet Volume 7.2; Platelet Count 191 k/uL (150-450); RBC 3.82 m/uL (4.30-5.90); RDW 16.9 % (11.5-15.5); WBC 4.4 k/uL (3.8-10.6)
[2020-01-29] MEDS: PANTOPRAZOLE 40 MG TABLET PO SCH (07:29)
[2020-01-29 10:42] LABS: Band Neutrophils % 9 %; Monocytes # (M) 0.48 k/uL (0-1.0); Neutrophils % (M) 71 %; Nucleated Red Blood Cells 0 /100 WBC (0-0); Total Cells Counted 100
[2020-01-29 10:43] LABS: Poikilocytosis (M) Present
[2020-01-29 11:30] LABS: African American GFR (CKD) 95.1 (60.0-200.0); Albumin 2.3 g/dL (3.80-4.90); Albumin/Globulin Ratio 1.35 (1.60-3.17); Anion Gap 6.9 mmol/L (4.00-12.00); BUN/Creat Ratio 47.78 Ratio (12.00-20.00); Calcium 7.8 mg/dL (8.7-10.3); Carbon Dioxide 24.1 mmol/L (21.6-31.8); Globulin 1.7 g/dL (1.6-3.3); Magnesium 1.6 mg/dL (1.5-2.4); Non-African American GFR(CKD) 82.1 (60.0-200.0); Potassium 4.2 mmol/L (3.5-5.5); Total Bilirubin 0.2 mg/dL (0.3-1.2)
--- NOTE | 2020-01-29 15:19 | P.PN ---
Subjective Progress Note Date: 01/29/20 HISTORY OF PRESENT ILLNESS 79-year-old male one of Dr. Chavez's patient with past medical history of pancreatic cancer was diagnosed recently who also nontender have history of BPH, hyperlipidemia hypertension chronic smoking who was diagnosed with pancreatic cancer not a candidate for surgery ended up seen oncology and has been on chemotherapy. Patient apparently took his chemotherapy last time Monday last week he was seen by his oncologist Dr. Ohara today complaining of severe generalized weakness with constitutional symptoms patient also developed to have mild nausea with no vomiting significant decrease intake Occasional worsening abdominal pain as well. Was seen and evaluated the [facility] department on to have BUN 66 creatinine of 1.81 significantly abnormal liver function tests urine was positive for as well. Patient is not able to hold his his had or be of continue to have significant symptoms with intractable nausea vomiting become extremely lightheaded and dizzy. [place] patient was diagnosed originally with pancreatic cancer in November when he developed to have painless jaundice CT of the abdomen and pelvis was confirmative patient was not a candidate to go for any surgical resection has been doing well until. 01/27: Patient is seen in follow-up today. Patient has been afebrile, heart rate 95, blood pressure 131/70, pulse ox 97% on room air. Repeat blood work reveals W BC 5.2, hemoglobin 11.5, platelet count 233. Potassium is 3.1 and will be replaced. Creatinine 1.4 and BUN 63. Patient has required Fuentes catheter placement due to urinary retention of greater than 300 ML's. Patient has refused bedtime snack and breakfast with very little appetite. Diet is currently clear liquids only. IV fluids will be decreased to 75 mL per hour. Consult in place with oncology. 01/28: Patient had Fuentes catheter placed yesterday due to urinary retention. He denies having any nausea. He states he feels a little stronger today. He is on clear liquids and tolerating without nausea vomiting. Diet will be advanced to regular diet. He has been afebrile, heart rate 80, blood pressure 122/73, pulse ox 95% on room air. Repeat blood work reveals W BC 4.4, hemoglobin 11.6. Electrolytes normal, creatinine 0.9. Patient has been seen by oncology REVIEW OF SYSTEMS CONSTITUTIONAL: Well-developed no acute respiratory distress. No no fever. EYES: No icterus sclerae, no conjunctivitis. EARS, NOSE, MOUTH, THROAT, and FACE: No sore throat, lymphadenopathy, carotid bruits or deformity. RESPIRATORY: Agrees breasts on the finding nor rhonchi mild expiratory wheezes. CARDIOVASCULAR: No CP, Palpitation, PND, Orthopnea, or angina. GASTROINTESTINAL: No Abd pain, Nausea or vomiting, no Diarrhea or constipation, No GI Bleed, no distention or masses. GENITOURINARY: Negative for Hematuria or UTI, no kidney stones. INTEGUMENT/BREAST: Negative for any muscular injury with mild osteoarthritis.. HEMATOLOGIC/LYMPHATIC: Negative for bleed or purpura. MUSCULOSKELTAL: Negative for Myalgia or arthralgia. NEURLOGICAL: No LOC, Sz or syncope, blurred vision dizziness or abnormality.. BEHAVIORAL/PSYCH: Negative. ENDOCRINE: Negative. PHYSICAL EXAMINATION Gen: This is a thin cachectic appearing 79-year-old male. Patient is sitting on the edge of the bed and appears to be comfortable. No acute resp iratory distress noted. HEENT: Head is atraumatic, normocephalic. Pupils equal, round. Sclerae is an icteric. NECK: Supple. No JVD. No lymphadenopathy. No thyromegaly. LUNGS: Clear to auscultation. No wheezes or rhonchi. No intercostal retractions. HEART: Regular rate and rhythm. No murmur. ABDOMEN: Soft. Bowel sounds are present. No masses. No tenderness. EXTREMITIES: No pedal edema. No calf tenderness. NEUROLOGICAL: Patient is awake, alert and oriented x3. Cranial nerves 2 through 12 are grossly intact. ASSESSMENT AND PLAN 1 intractable nausea vomiting and severe dehydration: Combination of side effect of chemotherapy along with worsening pancreatic cancer. Continue IV fluids, advance diet to regular, continue Marinol. Continue Zofran. 2 pancreatic cancer: Advance with worsening symptoms has been on chemotherapy with reaction to chemotherapy so far. Consult with oncology appreciated. 3. Electrolyte imbalance, hypokalemia: Continue to correct potassium watch liver function tests electrolyte imbalance daily while patient hospital. Status post replacement. 4 hyperlipidemia: Has been on simvastatin which was switched to atorvastatin at this point. 5 recurrent depression: Has been on Seroquel and Marinol doing well. 6 chronic smoking: Patient is still smoking 3 cigarettes a day who will have nicotine patch continue counseling to quit smoking completely. 7 hyperglycemia: Accu-Chek sliding scales coverage and be done. 8 DVT prophylaxis: Patient will be on heparin subcutaneous. 9 GI prophylaxis: Patient will be on pantoprazole. 10. Severe protein calorie malnutrition with BMI of 21, weight loss, albumin 2.4. Continue Marinol, Ensure clear added 11. Oral thrush. Continue nystatin. CODE STATUS: Full code. DISCHARGE PLAN Home with [facility] Impression and plan of care have been directed as dictated by the signing physician. Denise Aguirre nurse practitioner acting as scribe for signing physi sandra. Objective - Vital Signs Vital signs: Vital Signs Temp 97.4 F L 01/29/20 07:37 Pulse 80 01/29/20 07:37 Resp 16 01/29/20 07:38 BP 122/73 01/29/20 07:37 Pulse Ox 95 01/29/20 07:37 Intake & Output 01/28/20 01/29/20 01/29/20 18:59 06:59 18:59 Output Total 800 500 Balance -800 -500 Weight 65.317 kg Output: Urine 800 500 Other: Voiding Method Diaper Indwelling Catheter # Bowel Movements 0 0 - Labs CBC & Chem 7: 01/29/20 04:39 01/29/20 04:39 Labs: Abnormal Lab Results - Last 24 Hours (Table) 01/28/20 01/29/20 Range/Units 06:14 04:39 RBC 3.82 L (4.30-5.90) m/uL Hgb 11.6 L (13.0-17.5) gm/dL Hct 37.5 L (39.0-53.0) % RDW 16.9 H (11.5-15.5) % Potassium 3.1 L (3.5-5.5) mmol/L Anion Gap 12.40 H (4.00-12.00) mmol/L BUN 63.0 H (9.0-27.0) mg/dL Est GFR (CKD-EPI)AfAm 55.8 L (60.0-200.0) Est GFR (CKD-EPI)NonAf 48.1 L (60.0-200.0) BUN/Creatinine Ratio 45.00 H (12.00-20.00) Ratio Calcium 7.7 L (8.7-10.3) mg/dL
[2020-01-29] MEDS: TAMSULOSIN 0.4 MG CAP.ER.24H PO SCH (16:53)
[2020-01-29] MEDS: ATORVASTATIN 20 MG TAB PO SCH (19:52)
[2020-01-29] MEDS: HEPARIN SODIUM,PORCINE 5,000 UNIT/ML 1 ML VIAL SQ SCH (19:52)
--- NOTE | 2020-01-29 22:34 | P.PN ---
Subjective Progress Note Date: 01/29/20 Principal diagnosis: Failure to Thrive He is in good spirits eating popcicle, starting to get a little appetite, urinating and feeling better. Denies nausea or vomiting since admission Objective - Vital Signs Vital signs: Vital Signs Temp 97.3 F L 01/29/20 19:58 Pulse 82 01/29/20 19:58 Resp 16 01/29/20 19:58 BP 105/62 01/29/20 19:58 Pulse Ox 96 01/29/20 19:58 Intake & Output 01/29/20 01/29/20 01/30/20 06:59 18:59 06:59 Output Total 500 600 Balance -500 -600 Output: Urine 500 600 Other: Voiding Method Diaper Indwelling Catheter Indwelling Catheter # Bowel Movements 0 - Exam - Constitutional General appearance: cooperative, no acute distress, thin - EENT Eyes: EOMI ENT: NA/AT - Respiratory Respiratory: bilateral: diminished - Cardiovascular Rhythm: regular Heart sounds: normal: S1, S2 - Gastrointestinal General gastrointestinal: soft - Integumentary Integumentary: pale - Neurologic Neurologic: CNII-XII intact - Musculoskeletal Musculoskeletal: generalized weakness, strength equal bilaterally - Psychiatric Psychiatric: A&O x's 3 - Labs CBC & Chem 7: 01/29/20 04:39 01/29/20 04:39 Labs: Abnormal Lab Results - Last 24 Hours (Table) 01/29/20 01/29/20 Range/Units 04:39 04:39 RBC 3.82 L (4.30-5.90) m/uL Hgb 11.6 L (13.0-17.5) gm/dL Hct 37.5 L (39.0-53.0) % RDW 16.9 H (11.5-15.5) % Lymphocytes # (Manual) 0.40 L (1.0-4.8) k/uL BUN 43.0 H (9.0-27.0) mg/dL BUN/Creatinine Ratio 47.78 H (12.00-20.00) Ratio Calcium 7.8 L (8.7-10.3) mg/dL Total Bilirubin 0.2 L (0.3-1.2) mg/dL Total Protein 4.0 L (6.2-8.2) g/dL Albumin 2.30 L (3.80-4.90) g/dL Albumin/Globulin Ratio 1.35 L (1.60-3.17) g/dL Assessment and Plan (1) Pancreatic cancer Narrative/Plan: - Has been on hold since December for decreased performance Current Visit: Yes Status: Acute Code(s): C25.9 - MALIGNANT NEOPLASM OF PANCREAS, UNSPECIFIED SNOMED Code(s): 373352262 (2) Dehydration Current Visit: Yes Status: Acute Code(s): E86.0 - DEHYDRATION SNOMED Code(s): 89402150 (3) Weakness Current Visit: Yes Status: Acute Code(s): R53.1 - WEAKNESS SNOMED Code(s): 37030180 (4) Fall Current Visit: No Status: Acute Code(s): W19.XXXA - UNSPECIFIED FALL, INITIAL ENCOUNTER SNOMED Code(s): 4838874 (5) Hypokalemia Current Visit: Yes Status: Acute Code(s): E87.6 - HYPOKALEMIA SNOMED Code(s): 52583298 (6) Acute kidney insufficiency Current Visit: Yes Status: Acute Code(s): N28.9 - DISORDER OF KIDNEY AND URETER, UNSPECIFIED SNOMED Code(s): 324647910 Plan: - IV Hydration - Dieticien and strict I and Os please - Daily PT/OT - Increase Antiemetics - Nystatin for component of oral thrush - COntinue appetite stimulator and anri-depressants - Repeat abdominal imaging Creat 0.9 COntinue supportive care, IV hydration after CT
[2020-01-30] MEDS: IOPAMIDOL CONTRAST (ORAL USE) VIAL PO PRN ×2 (06:57→08:06)
[2020-01-30] MEDS: NYSTATIN 100,000 UNIT/ML SUSP 500,000 UNIT/5 ML CUP PO SCH ×3 (07:01→17:16)
[2020-01-30] MEDS: PANTOPRAZOLE 40 MG TABLET PO SCH (07:01)
[2020-01-30] MEDS: HEPARIN SODIUM,PORCINE 5,000 UNIT/ML 1 ML VIAL SQ SCH ×2 (07:22→20:25)
[2020-01-30] MEDS: LOPERAMIDE 2 MG CAP PO SCH ×3 (09:09→17:16)
--- NOTE | 2020-01-30 10:48 | CT ---
EXAMINATION TYPE: CT abdomen pelvis w con DATE OF EXAM: 01/30/2020 COMPARISON: Outside CT dated August 09, 2019 HISTORY: Abdominal pain with nausea, vomiting and diarrhea. History of pancreatic cancer CT DLP: 1594 mGycm, Automated Exposure Control for Dose Reduction was Utilized. CONTRAST: CT scan of the abdomen and pelvis is performed with oral water and with IV Contrast, patient injected with 100 mL of Isovue 300. Pancreas protocol. FINDINGS: LUNG BASES: New Small to tiny bilateral pleural effusions with associated compressive atelectasis. Sm all to tiny anterior pericardial effusion. LIVER/GB: There is internal biliary stent. Gallbladder has moderate ill-defined fluid and fat stran ding slightly contracted. There is fairly moderate extrahepatic biliary dilatation up to 18 mm near p valerie hepatis with tapering towards the duodenal ampulla. Mild central intrahepatic biliary dilatation is present. Nonspecific irregular hypodense lesions throughout the liver are redemonstrated. PANCREAS: Fairly moderate generalized atrophy of the pancreas. No significant ductal dilatation appre ciated. No obvious mass. SPLEEN: No significant abnormality is seen. ADRENALS: Diffuse thickening to both adrenal glands consistent with benign lipid rich hyperplasia is redemonstrated. KIDNEYS: Simple appearing 9.3 cm cyst exophytically lower pole left kidney noted coronal image 58. Sy mmetrical nodular uptake and excretion without hydronephrosis seen bilaterally. Simple appearing 1.3 cm cyst left kidney anteriorly midpole level axial image 31 series 11 and additional scattered simple -appearing parapelvic cyst left kidney and medial thin-walled cyst exophytically noted. Fuentes cathete r in decompressed bladder BOWEL: Oral contrast is seen in nondistended stomach along with duodenal sweep. Contrast prominent an d fluid prominent small bowel loops throughout the abdomen are present, some are abnormally greater t calloway 3.0 cm dilated. Some less prominent small bowel loops in the pelvis show [id number] wall th ickening. Scattered air-fluid levels. Fluid throughout the colon is present including a level of rect um. Several air fluid levels noted. PROSTATE/SEMINAL VESICLES: No gross abnormality seen. LYMPH NODES: No greater than 1cm abdominal or pelvic lymph nodes are appreciated. OSSEOUS STRUCTURES: Demineralization is present. Moderate axial joint space loss and spurring in both hips. Mild to moderate spurring throughout the spine. Multilevel facet arthropathy mid to lower lumb ar spine. OTHER: Moderate to severe mixed plaque of the aorta extends into branch vessels. There is focal trans verse chronic calcified dissection axial image 67 series 8 redemonstrated unchanged from prior study. IMPRESSION: 1. Improved but some persistent biliary dilatation despite interval placement of an internal draining plastic biliary stent. 2. Cannot exclude interval development of acute cholecystitis, correlate clinically. 3. New diffuse pancreatic atrophy from prior CT, possible head mass on prior study with a regular hyp odense lesion axial image 54 and coronal image 58 not clearly seen on current study. 4. Suspect new mild to moderate diffuse enterocolitis. Correlate clinically.
--- NOTE | 2020-01-30 11:25 | P.PN ---
Subjective Progress Note Date: 01/30/20 HISTORY OF PRESENT ILLNESS 79-year-old male one of Dr. Chavez's patient with past medical history of pancreatic cancer was diagnosed recently who also nontender have history of BPH, hyperlipidemia hypertension chronic smoking who was diagnosed with pancreatic cancer not a candidate for surgery ended up seen oncology and has been on chemotherapy. Patient apparently took his chemotherapy last time Monday last week he was seen by his oncologist Dr. Ohara today complaining of severe generalized weakness with constitutional symptoms patient also developed to have mild nausea with no vomiting significant decrease intake Occasional worsening abdominal pain as well. Was seen and evaluated the [facility] department on to have BUN 66 creatinine of 1.81 significantly abnormal liver function tests urine was positive for as well. Patient is not able to hold his his had or be of continue to have significant symptoms with intractable nausea vomiting become extremely lightheaded and dizzy. [place] patient was diagnosed originally with pancreatic cancer in November when he developed to have painless jaundice CT of the abdomen and pelvis was confirmative patient was not a candidate to go for any surgical resection has been doing well until. 01/27: Patient is seen in follow-up today. Patient has been afebrile, heart rate 95, blood pressure 131/70, pulse ox 97% on room air. Repeat blood work reveals W BC 5.2, hemoglobin 11.5, platelet count 233. Potassium is 3.1 and will be replaced. Creatinine 1.4 and BUN 63. Patient has required Fuentes catheter placement due to urinary retention of greater than 300 ML's. Patient has refused bedtime snack and breakfast with very little appetite. Diet is currently clear liquids only. IV fluids will be decreased to 75 mL per hour. Consult in place with oncology. 01/28: Patient had Fuentes catheter placed yesterday due to urinary retention. He denies having any nausea. He states he feels a little stronger today. He is on clear liquids and tolerating without nausea vomiting. Diet will be advanced to regular diet. He has been afebrile, heart rate 80, blood pressure 122/73, pulse ox 95% on room air. Repeat blood work reveals W BC 4.4, hemoglobin 11.6. Electrolytes normal, creatinine 0.9. Patient has been seen by oncology. 01/29: Oncology has ordered a CAT scan of the abdomen and pelvis with contrast today. Patient had a loose stool last night and no BM this morning. Nursing relates that he has diarrhea with each meal. He continues to have significant weakness. Patient has been afebrile, heart rate 62, blood pressure 97/64, pulse ox 96% on room air. Therapies have recommended home with homecare or subacute rehab. Discharge plan is to return home with [facility]. REVIEW OF SYSTEMS CONSTITUTIONAL: Well-developed no acute respiratory distress. No chills, no fever. EYES: No icterus sclerae, no conjunctivitis. EARS, NOSE, MOUTH, THROAT, and FACE: No sore throat, lymphadenopathy, carotid bruits or deformity. RESPIRATORY: Agrees breasts on the finding nor rhonchi mild expiratory wheezes. CARDIOVASCULAR: No CP, Palpitation, PND, Orthopnea, or angina. GASTROINTESTINAL: No Abd pain, Nausea or vomiting, no Diarrhea or constipation, No GI Bleed, no distention or masses. GENITOURINARY: Negative for Hematuria or UTI, no kidney stones. INTEGUMENT/BREAST: Negative for any muscular injury with mild osteoarthritis.. HEMATOLOGIC/LYMPHATIC: Negative for bleed or purpura. MUSCULOSKELTAL: Negative for Myalgia or arthralgia. NEURLOGICAL: No LOC, Sz or syncope, blurred vision dizziness or abnormality.. BEHAVIORAL/PSYCH: Negative. ENDOCRINE: Negative. PHYSICAL EXAMINATION Gen: This is a thin cachectic appearing 79-year-old male. Patient is in bed and appears to be comfortable. No acute respiratory distress noted. HEENT: Head is atraumatic, normocephalic. Pupils equal, round. Sclerae is anicteric. NECK: Supple. No JVD. No lymphadenopathy. No thyromegaly. LUNGS: Clear to auscultation. No wheezes or rhonchi. No intercostal retractions. HEART: Regular rate and rhythm. No murmur. ABDOMEN: Soft. Bowel sounds are present. No masses. No tenderness. EXTREMITIES: No pedal edema. No calf tenderness. NEUROLOGICAL: Patient is awake, alert and oriented x3. Cranial nerves 2 through 12 are grossly intact. ASSESSMENT AND PLAN 1 intractable nausea vomiting and severe dehydration: Combination of side effect of chemotherapy along with worsening pancreatic cancer. Continue IV fluids, advance diet to regular, continue Marinol. Continue Zofran. 2 pancreatic cancer: Advance with worsening symptoms has been on chemotherapy with reaction to chemotherapy so far. Consult with oncology appreciated. CAT scan of the abdomen and pelvis with contrast today. 3. Electrolyte imbalance, hypokalemia: Continue to correct potassium watch liver function tests electrolyte imbalance daily while patient hospital. Status post replacement. 4 hyperlipidemia: Has been on simvastatin which was switched to atorvastatin at this point. 5 recurrent depression: Has been on Seroquel and Marinol doing well. 6 chronic smoking: Patient is still smoking 3 cigarettes a day who will have nicotine patch continue counseling to quit smoking completely. 7 hyperglycemia: Accu-Chek sliding scales coverage and be done. 8 DVT prophylaxis: Patient will be on heparin subcutaneous. 9 GI prophylaxis: Patient will be on pantoprazole. 10. Severe protein calorie malnutrition with BMI of 21, weight loss, albumin 2.4. Continue Marinol, Ensure clear added 11. Oral thrush. Continue nystatin. CODE STATUS: Full code. DISCHARGE PLAN Home with [facility] Impression and plan of care have been directed as dictated by the signing physician. Denise Aguirre nurse practitioner acting as scribe for signing phys ician. Objective - Vital Signs Vital signs: Vital Signs Temp 97.9 F 01/30/20 02:11 Pulse 62 01/30/20 02:11 Resp 16 01/30/20 02:11 BP 97/64 01/30/20 02:11 Pulse Ox 96 01/30/20 02:11 Intake & Output 01/29/20 01/30/20 01/30/20 18:59 06:59 18:59 Output Total 600 600 Balance -600 -600 Output: Urine 600 600 Other: Voiding Method Indwelling Catheter Indwelling Catheter Indwelling Catheter - Labs CBC & Chem 7: 01/29/20 04:39 01/29/20 04:39 Labs: Abnormal Lab Results - Last 24 Hours (Table) 01/29/20 01/29/20 Range/Units 04:39 04:39 Lymphocytes # (Manual) 0.40 L (1.0-4.8) k/uL BUN 43.0 H (9.0-27.0) mg/dL BUN/Creatinine Ratio 47.78 H (12.00-20.00) Ratio Calcium 7.8 L (8.7-10.3) mg/dL Total Bilirubin 0.2 L (0.3-1.2) mg/dL Total Protein 4.0 L (6.2-8.2) g/dL Albumin 2.30 L (3.80-4.90) g/dL Albumin/Globulin Ratio 1.35 L (1.60-3.17) g/dL
[2020-01-30] MEDS: traMADol 50 MG TAB PO PRN ×2 (11:54→20:26)
[2020-01-30] MEDS: SUCRALFATE 1 GM TAB PO SCH ×3 (11:55→20:25)
[2020-01-30] MEDS: TAMSULOSIN 0.4 MG CAP.ER.24H PO SCH (17:17)
[2020-01-30 17:50] LABS: Anisocytosis Slight; HCT 35.6 % (39.0-53.0); HGB 11.7 gm/dL (13.0-17.5); MCH 31.7 pg (25.0-35.0); MCHC 32.8 g/dL (31.0-37.0); MCV 96.8 fL (80.0-100.0); Macrocytosis Slight; Mean Platelet Volume 7.4; Platelet Count 145 k/uL (150-450); RBC 3.68 m/uL (4.30-5.90); RDW 16.5 % (11.5-15.5); WBC 6.4 k/uL (3.8-10.6)
[2020-01-30 18:27] LABS: Band Neutrophils % 32 %; Eosinophils # (M) 0.06 k/uL (0-0.7); Lymphocytes # (M) 0.58 k/uL (1.0-4.8); Metamyelocytes # (M) 0.19 k/uL (0); Metamyelocytes % 3 %; Monocytes # (M) 0.26 k/uL (0-1.0); Neutrophils % (M) 52 %; Nucleated Red Blood Cells 0 /100 WBC (0-0); Total Cells Counted 200
[2020-01-30] MEDS ORDERED: LOPERAMIDE 2 MG CAP PO PRN (19:01)
--- NOTE | 2020-01-30 19:15 | P.PN ---
Subjective Progress Note Date: 01/30/20 Principal diagnosis: Failure to Thrive Patient with diarrhea today He is eating mainly sweets. I have spoken to today at length about goals of care and increased supportive quality care at home. Objective - Vital Signs Vital signs: Vital Signs Temp 97.9 F 01/30/20 14:00 Pulse 78 01/30/20 14:00 Resp 16 01/30/20 14:00 BP 89/56 01/30/20 14:00 Pulse Ox 99 01/30/20 15:42 Intake & Output 01/30/20 01/30/20 01/31/20 06:59 18:59 06:59 Output Total 600 Balance -600 Weight 65.317 kg Output: Urine 600 Other: Voiding Method Indwelling Catheter Indwelling Catheter # Bowel Movements 2 - Exam - Constitutional General appearance: cooperative, no acute distress, thin - EENT Eyes: EOMI ENT: NA/AT - Respiratory Respiratory: bilateral: diminished - Cardiovascular Rhythm: regular Heart sounds: normal: S1, S2 - Gastrointestinal General gastrointestinal: soft - Integumentary Integumentary: pale - Neurologic Neurologic: CNII-XII intact - Musculoskeletal Musculoskeletal: generalized weakness, strength equal bilaterally - Psychiatric Psychiatric: A&O x's 3 - Labs CBC & Chem 7: 01/30/20 17:18 01/29/20 04:39 Labs: Abnormal Lab Results - Last 24 Hours (Table) 01/30/20 Range/Units 17:18 RBC 3.68 L (4.30-5.90) m/uL Hgb 11.7 L (13.0-17.5) gm/dL Hct 35.6 L (39.0-53.0) % RDW 16.5 H (11.5-15.5) % Plt Count 145 L (150-450) k/uL Lymphocytes # (Manual) 0.58 L (1.0-4.8) k/uL Metamyelocytes # (Man) 0.19 H (0) k/uL Assessment and Plan (1) Pancreatic cancer Narrative/Plan: - Has been on hold since December for decreased performance Current Visit: Yes Status: Acute Code(s): C25.9 - MALIGNANT NEOPLASM OF PANCREAS, UNSPECIFIED SNOMED Code(s): 152531193 (2) Dehydration Current Visit: Yes Status: Acute Code(s): E86.0 - DEHYDRATION SNOMED Code(s): 86054268 (3) Weakness Current Visit: Yes Status: Acute Code(s): R53.1 - WEAKNESS SNOMED Code(s): 13633345 (4) Fall Current Visit: No Status: Acute Code(s): W19.XXXA - UNSPECIFIED FALL, INITIAL ENCOUNTER SNOMED Code(s): 4743451 (5) Hypokalemia Current Visit: Yes Status: Acute Code(s): E87.6 - HYPOKALEMIA SNOMED Code(s): 91406421 (6) Acute kidney insufficiency Current Visit: Yes Status: Acute Code(s): N28.9 - DISORDER OF KIDNEY AND URETER, UNSPECIFIED SNOMED Code(s): 515598178 Plan: , Long discussion with patients , from the sounds of it he has been on a pattern of diarrhea, nausea and vomiting and abdominal pain since treatment sta rt, and this past treatment much worse. Watery stools today - add questran to help thicken but not constipate. Also, he was recently started on seraquel by family physician, although patient has not been taking at home. I would consider remeron in place as this can assist in depression, sleep and appetite in elderly cancer patients. He was taking 13K of pancreatic enzymes at home, although the dosage needed would need to be much higher. We will hold this moving forward and increase his PPI and management of diarrhea in place, once that is under control then we can consider re-adding if needed at therapeutic dosing. CBC, CMP in am Plan to go home with Palliative care RN to assess home for safety and needed medical equipment, as well as, frequency of assessment to avoid the severe dehydration that led to this hospital stay. Will also ask for PT/OT in the home. Please discharge with Questran prescription. Greater than 35 minutes today counseling and coordinating care
[2020-01-30] MEDS: ATORVASTATIN 20 MG TAB PO SCH (20:26)
[2020-01-30] MEDS: CHOLESTYRAMINE (WITH SUGAR) 4 GM PACKET PO SCH (20:26)
[2020-01-31] MEDS: NYSTATIN 100,000 UNIT/ML SUSP 500,000 UNIT/5 ML CUP PO SCH ×2 (00:49→09:23)
[2020-01-31 02:28] LABS: African American GFR (CKD) 95.1 (60.0-200.0); Albumin 2.1 g/dL (3.80-4.90); Albumin/Globulin Ratio 1.24 (1.60-3.17); Anion Gap 7.9 mmol/L (4.00-12.00); BUN/Creat Ratio 37.78 Ratio (12.00-20.00); Calcium 7.2 mg/dL (8.7-10.3); Carbon Dioxide 20.1 mmol/L (21.6-31.8); Globulin 1.7 g/dL (1.6-3.3); Non-African American GFR(CKD) 82.1 (60.0-200.0); Potassium 3.7 mmol/L (3.5-5.5); Total Bilirubin 0.3 mg/dL (0.2-1.2); Total Protein 3.8 g/dL (6.2-8.2)
[2020-01-31] MEDS ORDERED: PANTOPRAZOLE 40 MG TABLET PO SCH (07:30)
[2020-01-31 07:38] LABS: Anisocytosis Slight; HCT 37.2 % (39.0-53.0); HGB 11.6 gm/dL (13.0-17.5); Hypochromasia Slight; MCH 30.8 pg (25.0-35.0); MCHC 31.2 g/dL (31.0-37.0); MCV 98.7 fL (80.0-100.0); Macrocytosis Slight; Mean Platelet Volume 8.1; Platelet Count 150 k/uL (150-450); RBC 3.77 m/uL (4.30-5.90); RDW 17.2 % (11.5-15.5)
--- NOTE | 2020-01-31 08:18 | P.DS ---
Providers Date of admission: 01/28/20 10:36 Expected date of discharge: 01/31/20 Attending physician: Conor Barton Consults: 01/27/20 16:20 Consult Physician Urgent Consulting Provider: Wenceslao Ohara Consult Reason/Comments: Oncological care Do you want consulting provider notified?: Yes Primary care physician: [facility] Course: HISTORY OF PRESENT ILLNESS 79-year-old male one of Dr. Chavez's patient with past medical history of pancreatic cancer was diagnosed recently who also nontender have history of BPH, hyperlipidemia hypertension chronic smoking who was diagnosed with pancreatic cancer not a candidate for surgery ended up seen oncology and has been on chemotherapy. Patient apparently took his chemotherapy last time Monday last week he was seen by his oncologist Dr. Ohara today complaining of severe generalized weakness with constitutional symptoms patient also developed to have mild nausea with no vomiting significant decrease intake Occasional worsening abdominal pain as well. Was seen and evaluated the [facility] department on to have BUN 66 creatinine of 1.81 significantly abnormal liver function tests urine was positive for as well. Patient is not able to hold his his had or be of continue to have significant symptoms with intractable nausea vomiting become extremely lightheaded and dizzy. [place] patient was diagnosed originally with pancreatic cancer in November when he developed to have painless jaundice CT of the abdomen and pelvis was confirmative patient was not a candidate to go for any surgical resection has been doing well until. 01/27: Patient is seen in follow-up today. Patient has been afebrile, heart rate 95, blood pressure 131/70, pulse ox 97% on room air. Repeat blood work reveals W BC 5.2, hemoglobin 11.5, platelet count 233. Potassium is 3.1 and will be replaced. Creatinine 1.4 and BUN 63. Patient has required Fuentes catheter placement due to urinary retention of greater than 300 ML's. Patient has refused bedtime snack and breakfast with very little appetite. Diet is currently clear liquids only. IV fluids will be decreased to 75 mL per hour. Consult in place with oncology. 01/28: Patient had Fuentes catheter placed yesterday due to urinary retention. He denies having any nausea. He states he feels a little stronger today. He is on clear liquids and tolerating without nausea vomiting. Diet will be advanced to regular diet. He has been afebrile, heart rate 80, blood pressure 122/73, pulse ox 95% on room air. Repeat blood work reveals W BC 4.4, hemoglobin 11.6. Electrolytes normal, creatinine 0.9. Patient has been seen by oncology. 01/29: Oncology has ordered a CAT scan of the abdomen and pelvis with contrast today. Patient had a loose stool last night and no BM this morning. Nursing relates that he has diarrhea with each meal. He continues to have significant weakness. Patient has been afebrile, heart rate 62, blood pressure 97/64, pulse ox 96% on room air. Therapies have recommended home with homecare or subacute rehab. Discharge plan is to return home with [facility]. 01/30: Patient states that he is feeling better. He is having loose stools 3 t imes per day but can continue on Imodium and Questran at home. He has been seen by oncology with plan for discharge with palliative care[facility] He has been afebrile, heart rate 104, blood pressure 105/64, pulse ox 100% on room air. Repeat blood work reveals WBC 5, hemoglobin 11.6, platelet count 150. Electrolytes normal, BUN 33 and creatinine 0.8. C. difficile toxin negative. Patient will be discharged home today in stable condition. ASSESSMENT AND PLAN 1 intractable nausea vomiting and severe dehydration: Combination of side effect of chemotherapy along with worsening pancreatic cancer. 2 pancreatic cancer: Advance 3. Electrolyte imbalance, hypokalemia 4 hyperlipidemia 5 recurrent depression 6 chronic smoking: Patient is still smoking 3 cigarettes a day 7 hyperglycemia 8 Severe protein calorie malnutrition with BMI of 21, weight loss, albumin 2.4. 9. Oral thrush. DISCHARGE PLAN Home with [facility] and Palliative care Impression and plan of care have been directed as dictated by the signing physician. Denise Aguirre nurse practitioner acting as scribe for signing physician. Patient Condition at Discharge: Good Plan - Discharge Summary New Discharge Prescriptions: New Sucralfate [Carafate] 1 gm PO ACHS #120 tab Tamsulosin [Flomax] 0.4 mg PO PC-SUPPER #30 cap.er.24h Loperamide [Imodium] 2 mg PO QID PRN cap PRN Reason: Diarrhea Nystatin 100,000 Unit/ml Susp [Mycostatin Oral Susp] 500,000 unit PO QID #250 ml Pantoprazole [Protonix] 40 mg PO AC-BID #60 tablet. Cholestyramine (with Sugar) [Questran Packet] 4 gm PO BID #60 packet Continue dronabinoL [Dronabinol] 5 mg PO BID QUEtiapine [SEROquel] 12.5 mg PO HS PRN PRN Reason: Insomnia traMADol HCL [Ultram] 50 mg PO DAILY PRN PRN Reason: Pain Simvastatin 40 mg PO HS Ondansetron HCl [Zofran] 4 mg PO Q4H PRN PRN Reason: Nausea And Vomiting Discharge Medication List Ondansetron HCl [Zofran] 4 mg PO Q4H PRN 01/22/20 [History] QUEtiapine [SEROquel] 12.5 mg PO HS PRN 01/22/20 [History] Simvastatin 40 mg PO HS 01/22/20 [History] dronabinoL [Dronabinol] 5 mg PO BID 01/22/20 [History] traMADol HCL [Ultram] 50 mg PO DAILY PRN 01/22/20 [History] Cholestyramine (with Sugar) [Questran Packet] 4 gm PO BID #60 packet 01/31/20 [Rx] Loperamide [Imodium] 2 mg PO QID PRN cap 01/31/20 [Rx] Nystatin 100,000 Unit/ml Susp [Mycostatin Oral Susp] 500,000 unit PO QID #250 ml 01/31/20 [Rx] Pantoprazole [Protonix] 40 mg PO AC-BID #60 tablet. 01/31/20 [Rx] Sucralfate [Carafate] 1 gm PO ACHS #120 tab 01/31/20 [Rx] Tamsulosin [Flomax] 0.4 mg PO PC-SUPPER #30 cap.er.24h 01/31/20 [Rx] Follow up Appointment(s)/Referral(s): Finesse Chavez MD [Primary Care Provider] - 1 Week (patient will have to call and schedule own appt.) Wenceslao Ohara MD [STAFF PHYSICIAN] - 02/10/20 12:00 pm [facility], [NON-STAFF] - As Needed Care,[facility] [NON-STAFF] - Patient Instructions/Handouts: Dehydration (DC), Hypokalemia (DC), Pancreatic Cancer (DC), Weakness (DC) Discharge Disposition: HOME WITH HOME HEALTH SERVICES
[2020-01-31 08:56] LABS: Band Neutrophils % 8 %; Eosinophils # (M) 0.05 k/uL (0-0.7); Lymphocytes # (M) 0.65 k/uL (1.0-4.8); Monocytes # (M) 0.55 k/uL (0-1.0); Neutrophils % (M) 67 %; Nucleated Red Blood Cells 0 /100 WBC (0-0); Polychromasia Present; Total Cells Counted 100
[2020-01-31] MEDS: HEPARIN SODIUM,PORCINE 5,000 UNIT/ML 1 ML VIAL SQ SCH (09:24)
[2020-01-31] MEDS: SUCRALFATE 1 GM TAB PO SCH (09:24)
[2020-01-31] MEDS: CHOLESTYRAMINE (WITH SUGAR) 4 GM PACKET PO SCH (09:25)
[2020-01-31 09:41] LABS: African American GFR (CKD) 99.9 (60.0-200.0); Albumin/Globulin Ratio 1.18 (1.60-3.17); Anion Gap 5.4 mmol/L (4.00-12.00); BUN/Creat Ratio 41.25 Ratio (12.00-20.00); Calcium 7.1 mg/dL (8.7-10.3); Carbon Dioxide 22.6 mmol/L (21.6-31.8); Globulin 1.7 g/dL (1.6-3.3); Magnesium 1.4 mg/dL (1.5-2.4); Non-African American GFR(CKD) 86.2 (60.0-200.0); Potassium 3.7 mmol/L (3.5-5.5); Total Bilirubin 0.3 mg/dL (0.2-1.2); Total Protein 3.7 g/dL (6.2-8.2)
[2020-01-31 10:45] VITALS: BP 105/64; PULSE 104; RESP 20; TEMP 97.5
--- NOTE | 2020-01-31 18:57 | P.PN ---
Subjective Progress Note Date: 01/31/20 Principal diagnosis: Failure to Thrive Patient eating a little more, still with diarrhea. Objective - Vital Signs Vital signs: Vital Signs Temp 97.5 F L 01/31/20 08:00 Pulse 104 H 01/31/20 08:00 Resp 20 01/31/20 08:00 BP 105/64 01/31/20 08:00 Pulse Ox 100 01/31/20 08:00 Intake & Output 01/30/20 01/31/20 01/31/20 18:59 06:59 18:59 Intake Total 118 Output Total 725 Balance -725 118 Weight 65.317 kg Intake: Oral 118 Output: Urine 725 Other: Voiding Method Indwelling Catheter Indwelling Catheter Indwelling Catheter # Bowel Movements 2 - Exam - Constitutional General appearance: cooperative, no acute distress, thin - EENT Eyes: EOMI ENT: NA/AT - Respiratory Respiratory: bilateral: diminished - Cardiovascular Rhythm: regular Heart sounds: normal: S1, S2 - Gastrointestinal General gastrointestinal: soft - Integumentary Integumentary: pale - Neurologic Neurologic: CNII-XII intact - Musculoskeletal Musculoskeletal: generalized weakness, strength equal bilaterally - Psychiatric Psychiatric: A&O x's 3 - Labs CBC & Chem 7: 01/31/20 06:34 01/31/20 06:34 Labs: Abnormal Lab Results - Last 24 Hours (Table) 01/30/20 01/30/20 01/31/20 Range/Units 15:45 17:18 06:34 RBC 3.77 L (4.30-5.90) m/uL Hgb 11.6 L (13.0-17.5) gm/dL Hct 37.2 L (39.0-53.0) % RDW 17.2 H (11.5-15.5) % Lymphocytes # (Manual) 0.65 L (1.0-4.8) k/uL Carbon Dioxide 20.1 L (21.6-31.8) mmol/L BUN 34.0 H (9.0-27.0) mg/dL BUN/Creatinine Ratio 37.78 H (12.00-20.00) Ratio Glucose 129 H (70-110) mg/dL Calcium 7.2 L (8.7-10.3) mg/dL Magnesium (1.5-2.4) mg/dL AST 11 L (14-35) U/L Total Protein 3.8 L (6.2-8.2) g/dL Albumin 2.10 L (3.80-4.90) g/dL Albumin/Globulin Ratio 1.24 L (1.60-3.17) g/dL Stool Lactoferrin POSITIVE A (NEGATIVE) 01/31/20 Range/Units 06:34 RBC (4.30-5.90) m/uL Hgb (13.0-17.5) gm/dL Hct (39.0-53.0) % RDW (11.5-15.5) % Lymphocytes # (Manual) (1.0-4.8) k/uL Carbon Dioxide (21.6-31.8) mmol/L BUN 33.0 H (9.0-27.0) mg/dL BUN/Creatinine Ratio 41.25 H (12.00-20.00) Ratio Glucose (70-110) mg/dL Calcium 7.1 L (8.7-10.3) mg/dL Magnesium 1.4 L (1.5-2.4) mg/dL AST 11 L (14-35) U/L Total Protein 3.7 L (6.2-8.2) g/dL Albumin 2.00 L (3.80-4.90) g/dL Albumin/Globulin Ratio 1.18 L (1.60-3.17) g/dL Stool Lactoferrin (NEGATIVE) Microbiology - Last 24 Hours (Table) 01/30/20 15:45 Stool Culture - Preliminary Stool Assessment and Plan (1) Pancreatic cancer Narrative/Plan: - Has been on hold since December for decreased performance Status: Acute Code(s): C25.9 - MALIGNANT NEOPLASM OF PANCREAS, UNSPECIFIED SNOMED Code(s): 916559190 (2) Dehydration Status: Acute Code(s): E86.0 - DEHYDRATION SNOMED Code(s): 33135139 (3) Weakness Status: Acute Code(s): R53.1 - WEAKNESS SNOMED Code(s): 44722310 (4) Fall Status: Acute Code(s): W19.XXXA - UNSPECIFIED FALL, INITIAL ENCOUNTER SNOMED Code(s): 4227879 (5) Hypokalemia Status: Acute Code(s): E87.6 - HYPOKALEMIA SNOMED Code(s): 65541685 (6) Acute kidney insufficiency Status: Acute Code(s): N28.9 - DISORDER OF KIDNEY AND URETER, UNSPECIFIED SNOMED Code(s): 787456362 Plan: , Long discussion with patients , from the sounds of it he has been on a pattern of diarrhea, nausea and vomiting and abdominal pain since treatment start, and this past treatment much worse. Watery stools today - add questran to help thicken but not constipate. Also, he was recently started on seraquel by family physician, although patient has not been taking at home. I would consider remeron in place as this can assist in depression, sleep and appetite in elderly cancer patients. He was taking 13K of pancreatic enzymes at home, although the dosage needed would need to be much higher. We will hold this moving forward and increase his PPI and management of diarrhea in place, once that is under control then we can consider re-adding if needed at therapeutic dosing. CBC, CMP in am Plan to go home with Palliative care RN to assess home for safety and needed medical equipment, as well as, frequency of assessment to avoid the severe dehydration that led to this hospital stay. Will also ask for PT/OT in the home. Please discharge with Questran prescription. Plan for discharge today, Questran and follow-up next week.
== END 2020-01-31 12:15 | disposition home health service (06) | DRG 640 ==
LOC: EC 14:57 → 5NMEDONC 16:30 → OBSVTOIN 01-28 10:36
PROVIDERS: ADMIT Internal Medicine Geriatric Medicine; ATTEND Internal Medicine Geriatric Medicine
DX: E86.0 Dehydration (principal); E43 Unspecified severe protein-calorie malnutrition; F33.9 Major depressive disorder, recurrent, unspecified; B37.0 Candidal stomatitis; C25.9 Malignant neoplasm of pancreas, unspecified; K52.1 Toxic gastroenteritis and colitis; E87.6 Hypokalemia; T45.1X5A Adverse effect of antineoplastic and immunosuppressive drugs, initial encounter; R62.7 Adult failure to thrive; N40.1 Benign prostatic hyperplasia with lower urinary tract symptoms; R33.8 Other retention of urine; I10 Essential (primary) hypertension; F17.210 Nicotine dependence, cigarettes, uncomplicated; E78.5 Hyperlipidemia, unspecified; N28.9 Disorder of kidney and ureter, unspecified; Z68.21 Body mass index [BMI] 21.0-21.9, adult
CPT/HCPCS: 36415; 71046; 74177; 80048; 80053; 81001; 83605; 83630; 83735; 85025; 85610; 85730; 87045; 87046; 87324; 87635; 93005; 94760; 96361; 96374; 99285